=== PATIENT | male | born 1955 | race Caucasian/White ===

== ENCOUNTER → 2018-02-17 11:26 | Outpatient (CLI) | payer OTHER, SELFPAY ==
[2018-02-17 12:22] LABS: Partial Thromboplast Time 30.8 Seconds (24.1-36.2); Prothrombin Time (Protime)PT. 13.6 SECONDS (11.7-14.9)
[2018-02-17 12:38] LABS: Hematocrit 41.9 % (40-54); Hemoglobin 13.6 g/dl (13.0-16.5); Mean Corp Hgb Conc 32.5 g/gl (32-36); Mean Corpuscular Hgb 31.3 pg (27.0-32.0); Mean Corpuscular Volume 96.5 fL (80-94); Mean Platelet Vol. 9.6 fl (6.2-12.0); Platelet Count 258 K/mm3 (150-450); RBC Distribution Width CV 13.4 % (11.6-14.6); RBC Distribution Width SD 47.4 fl (35.1-43.9); Red Blood Count 4.34 M/mm3 (4.6-6.2); White Blood Count 7.8 K/mm3 (4.4-11.0)
[2018-02-17 12:48] LABS: Scan Indicated on CBC? Y/N NO
== END ==
PROVIDERS: Family Provider Internal Medicine; PCP Internal Medicine; Visit Provider Internal Medicine Nephrology
DX: R80.9 Proteinuria, unspecified (principal)
CPT/HCPCS: 36415; 85027; 85610; 85730

== ENCOUNTER → 2018-04-24 09:57 | Outpatient (CLI) | payer OTHER, SELFPAY ==
[2018-04-24 12:34] LABS: Protein, Urine (Random) 78.3 mg/dL (<11.9); Protein:Creat Ratio 732 mg/g CRE (0-200)
[2018-04-24 12:38] LABS: BUN 14 mg/dL (7-18); BUN/Creat Ratio 11.7 RATIO (10-20); Chloride 106 mmol/L (98-107); EST Glomerular Filtration Rate 65 mL/min (>60); Est Glom Filt Rate - Afr Amer 79 mL/min (>60); Glucose 86 mg/dL (74-106); Phosphorus 2.8 mg/dL (2.5-4.9); Potassium 4.2 mmol/L (3.5-5.1); Sodium Level 138 mmol/L (136-145)
[2018-04-24 14:36] LABS: Hematocrit 43.4 % (40-54); Hemoglobin 14.7 g/dl (13.0-16.5); Mean Corp Hgb Conc 33.9 g/gl (32-36); Mean Corpuscular Hgb 32.2 pg (27.0-32.0); Mean Platelet Vol. 10.3 fl (6.2-12.0); Platelet Count 283 K/mm3 (150-450); RBC Distribution Width CV 13.1 % (11.6-14.6); RBC Distribution Width SD 44.4 fl (35.1-43.9); Red Blood Count 4.57 M/mm3 (4.6-6.2); White Blood Count 6.7 K/mm3 (4.4-11.0)
[2018-04-24 14:38] LABS: Scan Indicated on CBC? Y/N NO
[2018-04-25 10:29] LABS: Vitamin D,25 Hydroxy 21.5 ng/mL (29.95-100.01)
[2018-04-25 10:40] LABS: PTHIN 69.6 pg/mL (18.4-80.1)
[2018-04-25 14:27] LABS: ANTINUCLEAR ANTIBODIES DIRECT Negative (Negative)
[2018-04-25 16:10] LABS: Cytoplasmic Ab (C-ANCA) <1:20 titer (Neg:<1:20); HEPATITIS B SURFACE AG Negative (Negative); Hepatitis A AB, Total Negative (Negative); Hepatitis A IgM Antibody Negative (Negative); Hepatitis B Core AB IgM Negative (Negative); Hepatitis B Core Ab Total Negative (Negative); Hepatitis C Ab <0.1 s/co ratio (0.0-0.9); PROEL- A/G Ratio 1.1 (0.7-1.7); PROEL- Alpha-1 Globulin 0.2 g/dL (0.0-0.4); PROEL- Beta Globulin 1.3 g/dL (0.7-1.3); PROEL- Gamma Globulin 1.2 g/dL (0.4-1.8); PROEL- Globulin, Total 3.6 g/dL (2.2-3.9); PROEL- TOTAL PROTEIN 7.6 g/dL (6.0-8.5)
[2018-04-28 09:58] LABS: Complement C3 153 mg/dL (82-167); Hep B Surface Antibodies Non Reactive (.); Perinuclear Ab (P-ANCA) <1:20 titer (Neg:<1:20)
[2018-04-29 12:08] LABS: PROELU- Albumin, Urine 81.8 % (.); PROELU- Alpha-1-Globulin,Ur 0.9 % (.); PROELU- Alpha-2-Globulin,Ur 2.7 % (.); PROELU- Beta Globulin, Ur 8.6 % (.); PROELU- Gamma Globulin, Ur 5.9 % (.); Total Protein, Ur 84.5 mg/dL (Not Estab.)
== END ==
PROVIDERS: Family Provider Internal Medicine; PCP Internal Medicine; Visit Provider Internal Medicine Nephrology
DX: E55.9 Vitamin D deficiency, unspecified (principal); R80.9 Proteinuria, unspecified
CPT/HCPCS: 36415; 80069; 82306; 82570; 83970; 84156; 84165; 84166; 85027; 86038; 86160; 86256; 86704; 86705; 86706; 86708; 86709; 86803; 87340

== ENCOUNTER → 2018-04-29 08:34 | Outpatient (CLI) | payer OTHER, SELFPAY ==
[2018-04-29 11:25] LABS: 24 Hour Urine Protein 1953.2 mg/24HR (<150 MG/24HR); 24HR. UA Prot. Total Volume 1450 mL; Urine Protein (24 Hour) 134.7 mg/dL (<11.9)
== END ==
PROVIDERS: Family Provider Internal Medicine; PCP Internal Medicine; Visit Provider Internal Medicine Nephrology
DX: E55.9 Vitamin D deficiency, unspecified (principal); R80.9 Proteinuria, unspecified
CPT/HCPCS: 84156

== ENCOUNTER → 2018-06-02 11:50 | Outpatient (CLI) | payer OTHER, SELFPAY ==
[2018-06-02 14:05] LABS: Hematocrit 43.4 % (40-54); Hemoglobin 14.2 g/dl (13.0-16.5); Mean Corp Hgb Conc 32.7 g/gl (32-36); Mean Corpuscular Hgb 31.1 pg (27.0-32.0); Mean Platelet Vol. 9.6 fl (6.2-12.0); Platelet Count 276 K/mm3 (150-450); RBC Distribution Width CV 13.3 % (11.6-14.6); Red Blood Count 4.57 M/mm3 (4.6-6.2); Scan Indicated on CBC? Y/N NO; White Blood Count 8.3 K/mm3 (4.4-11.0)
[2018-06-02 14:15] LABS: Anion Gap 10 (5-15); BUN 23 mg/dL (7-18); BUN/Creat Ratio 20.2 RATIO (10-20); Calcium,Total 9.1 mg/dL (8.5-10.1); Chloride 106 mmol/L (98-107); Creatinine, Serum 1.14 mg/dL (0.70-1.30); EST Glomerular Filtration Rate 69 mL/min (>60); Est Glom Filt Rate - Afr Amer 84 mL/min (>60); Glucose 87 mg/dL (74-106); Potassium 3.7 mmol/L (3.5-5.1); Sodium Level 139 mmol/L (136-145)
[2018-06-02 14:26] LABS: Prothrombin Time (Protime)PT. 13.2 SECONDS (11.7-14.9)
[2018-06-02 14:27] LABS: Partial Thromboplast Time 30.2 Seconds (24.1-36.2)
== END ==
PROVIDERS: Family Provider Internal Medicine; PCP Internal Medicine; Visit Provider Internal Medicine Nephrology
DX: R80.9 Proteinuria, unspecified (principal)
CPT/HCPCS: 36415; 80048; 85027; 85610; 85730

== ENCOUNTER → 2018-07-25 15:19 | Outpatient (CLI) | payer OTHER, SELFPAY ==
[2018-07-25 17:48] LABS: Color, Urine Yellow (Yellow); Glucose, Dipstick Normal (Normal); Ketone-Dipstick Negative (Negative); Leukocyte Esterase-Dipstick Negative /ul (Negative); Nitrite-Dipstick Negative (Negative); Occult Blood-Urine Negative /ul (Negative); Protein-Dipstick 100 mg/dl (Negative); Urine Bilirubin Dipstick Negative (Negative); Urine Clarity Clear (Clear); Urine Urobilinogen Normal (Normal)
[2018-07-25 17:50] LABS: Hematocrit 41.2 % (40-54); Hemoglobin 13.8 g/dl (13.0-16.5); Mean Corp Hgb Conc 33.5 g/gl (32-36); Mean Corpuscular Volume 95.6 fL (80-94); Platelet Count 297 K/mm3 (150-450); RBC Distribution Width CV 13.5 % (11.6-14.6); RBC Distribution Width SD 45.2 fl (35.1-43.9); Red Blood Count 4.31 M/mm3 (4.6-6.2)
[2018-07-25 17:51] LABS: Albumin, Serum 3.9 g/dL (3.2-5.0); BUN 16 mg/dL (7-18); BUN/Creat Ratio 13.9 RATIO (10-20); Calcium,Total 9.1 mg/dL (8.5-10.1); Chloride 104 mmol/L (98-107); Creatinine, Serum 1.15 mg/dL (0.70-1.30); EST Glomerular Filtration Rate 68 mL/min (>60); Est Glom Filt Rate - Afr Amer 83 mL/min (>60); Glucose 152 mg/dL (74-106); Phosphorus 2.9 mg/dL (2.5-4.9); Potassium 4.2 mmol/L (3.5-5.1); Sodium Level 140 mmol/L (136-145)
[2018-07-25 18:02] LABS: PTHIN 39.3 pg/mL (18.4-80.1); Vitamin D,25 Hydroxy 23.4 ng/mL (29.95-100.01)
[2018-07-25 18:09] LABS: Scan Indicated on CBC? Y/N NO
[2018-07-25 18:11] LABS: Microalbumin:Creatinine Ratio 272.9 mg/g CRE (<30 mg/g CRE); Protein, Urine (Random) 50.1 mg/dL (<11.9); Protein:Creat Ratio 425 mg/g CRE (0-200)
[2018-07-25 18:46] LABS: International Normalized Ratio 0.9; Prothrombin Time (Protime)PT. 12.4 SECONDS (11.7-14.9)
[2018-07-25 18:47] LABS: Partial Thromboplast Time 28.1 Seconds (24.1-36.2)
== END ==
PROVIDERS: Family Provider Internal Medicine; PCP Internal Medicine; Visit Provider Internal Medicine Nephrology
DX: R80.9 Proteinuria, unspecified (principal); E55.9 Vitamin D deficiency, unspecified
CPT/HCPCS: 36415; 80069; 81002; 82043; 82306; 82570; 83970; 84156; 85027; 85610; 85730

== ENCOUNTER → 2018-07-30 08:51 | Outpatient (CLI) | payer OTHER, SELFPAY ==
[2018-07-30] VITALS (9 sets, daily range): BP systolic 95–135; BP diastolic 44–73; PULSE 53–58; RESP 12–18; TEMP 36.6; O2SAT 92–100; BMI 31.4
--- NOTE | 2018-07-30 | KID_PTH ---
PATIENT: SHASHA DODSON LOC: CT U#:[id number] AGE/SX: 70/M ROOM: RE07/30/[address]: Dr. Belle Kaur MD : 1955 BED: DIS: SPEC #: [id number] RECD: 07/30/18 13:13 STATUS: CRESCENCIO MAUREEN #: [id number] MARCE: 07/30/18 00:[address]: Belle Kaur DEPT: SURGICAL PATHOLOGY RECD BY: Jimbo Gracia ENTERED: 07/30/18 13:14 SP TYPE: KIDNEY OTHR DR: Dr. Domitila Martinez MD Tissues: Kidney, NOS Procedures: Electron Microscopy (ACH) Fluorescent Antibody (ACH) Sp St Grp II Kidney (ACH) Kidney Biopsy (ACH) Fluorescent antibody (ACH) add'l HEADER OPERATION: CT-guided kidney biopsy PRE-OP DIAGNOSIS: Proteinuria TISSUE SUBMITTED: Right kidney 18g x4 MICROSCOPIC DIAGNOSIS Renal biopsy demonstrating acute tubular injury, mild arterionephrosclerosis and chronic tubulointerstitial changes (see comment). COMMENT This renal biopsy demonstrates acute tubular injury with mild arterionephrosclerosis and chronic tubulointerstitial changes. These findings may represent chronic vascular changes (e.g., hypertension). Evaluation of the podocytes is limited due to fixation artifact and only 12 intact glomeruli are present for evaluation, thus a podocytopathy cannot be entirely excluded. Please correlate with the clinical history. MICROSCOPIC DESCRIPTION Sections are evaluated with H & E, PAS, Streeter and trichrome stains. Sixteen glomeruli are present. Four glomeruli are globally sclerotic. Preserved glomeruli demonstrate delicate capillary loops with mild thickening of vascular poles. No segmental lesions, cellular proliferation or active glomerulitis are identified. There is approximately 40% interstitial fibrosis with proportionate tubular atrophy. The majority of the tubules demonstrate attenuation of the epithelial lining and several show necrosis and sloughing of the cells into the lumen. There is a patchy, mild mononuclear interstitial inflammatory infiltrate. Rare arterioles are present and demonstrate mild myointimal thickening. No arteritis is identified. IMMUNOFLUORESCENCE: There is no specific staining to indicate the deposition of the immunoglobulins (IgG, IgA or IgM) or complement components (C3 or C1q). Stains for light chains kappa and lambda show no evidence of deposition in glomerular or tubular basement membranes. Glomerular fibrin deposition is not increased. ELECTRON MICROSCOPY: One glomerulus is evaluated. Mesangial areas are not significantly expanded and no discrete electron dense deposits are identified. Glomerular capillary loops show basement membranes of normal thickness with no discrete electron dense deposits. Podocytes demonstrate degenerative change, suggestive of under-fixation artifact. Where present, podocytes demonstrate areas that appear normal and some areas of effacement. Tubular basement membranes are of increased thickness with no discrete electron dense deposits. GROSS DESCRIPTION The specimen is sent entirely to [facility] for diagnosis. The specimen is received in transport medium and consists of four cores of briseno renal tissue that range in length from 1.2 to 1.5 cm. The cores are divided for histology, immunofluorescence and electron microscopy.
== END ==
PROVIDERS: Family Provider Internal Medicine; PCP Internal Medicine; Visit Provider Internal Medicine Nephrology
DX: N17.9 Acute kidney failure, unspecified (principal); I12.9 Hypertensive chronic kidney disease with stage 1 through stage 4 chronic kidney disease, or unspecified chronic kidney disease; N18.2 Chronic kidney disease, stage 2 (mild); N15.9 Renal tubulo-interstitial disease, unspecified; N52.9 Male erectile dysfunction, unspecified; E55.9 Vitamin D deficiency, unspecified; L40.9 Psoriasis, unspecified; Z79.899 Other long term (current) drug therapy
CPT/HCPCS: 50200; 77012; 88305; 88313; 88346; 88348; 88350; 99156; J7040; A4216

== ENCOUNTER → 2018-09-25 10:59 | Outpatient (CLI) | payer OTHER, SELFPAY ==
--- NOTE | 2018-09-25 11:02 | VDLE_ITS ---
[id number] VL^VDUL^Venous Duplex US- Unilateral [id number] TAG_START Cardiovascular Services Venous Doppler [facility] [place] [address] Ordering Physician: Taylor Alvarez TAG_ENDED TAG_START Name: SHASHA DODSON Study Date: 09/25/2018 11:04 AM Patient Location: [facility] : 1955 Gender: Male Age: 62 yrs Ethnicity: C TAG_ENDED Reason For Study: LEG PAIN RIGHT LEFT GSV is normal. CFV is compressible, spontaneous, phasic, CFV is compressible, spontaneous, phasic, competent, and demonstrates normal competent and demonstrates normal augmentation. augmentation. FV is compressible, spontaneous, phasic, competent and demonstrates normal augmentation. POP V is compressible, spontaneous, phasic, competent and demonstrates normal augmentation. T/P Trunk is compressible. PTV is compressible. RT PerV is compressible. Procedure Exam performed in department. A preliminary report was called and/or faxed to Dr. Alvarez. <> Interpretation Summary Deep veins of the right lower extremity are patent and compressible segmentally. There is no evidence of right lower extremity deep vein thrombosis. Valvular competence appears intact within the proximal deep venous system on the right . The right greater saphenous vein appears patent and compressible segmentally. TAG_START TAG_ENDED Ordering Physician: Taylor Alvarez Referring Physician: Taylor Alvarez Performed By: Neisha Kelley RVT
== END ==
PROVIDERS: Family Provider Internal Medicine; PCP Internal Medicine; Referring Provider Internal Medicine; Visit Provider Internal Medicine
DX: M79.661 Pain in right lower leg (principal)
CPT/HCPCS: 93971

== ENCOUNTER → 2019-02-23 08:31 | Outpatient (CLI) | payer OTHER, SELFPAY ==
[2019-02-23 08:38] LABS: Red Blood Cells-Urine 0 SEEN /hpf (0-5); Squamous Epithelial Cells - UA 0 SEEN /hpf (0-5); White Blood Cells 0 SEEN /hpf (0-5)
[2019-02-23 10:29] LABS: Color, Urine Yellow (Yellow); Glucose, Dipstick Normal (Normal); Ketone-Dipstick Negative (Negative); Leukocyte Esterase-Dipstick Negative /ul (Negative); Nitrite-Dipstick Negative (Negative); Occult Blood-Urine Negative /ul (Negative); Protein-Dipstick 100 mg/dl (Negative); Specific Gravity, Urine 1.025 (1.002-1.030); Urine Bilirubin Dipstick Negative (Negative); Urine Clarity Clear (Clear); Urine Urobilinogen Normal (Normal)
[2019-02-23 10:42] LABS: Bacteria RARE /hpf (None Seen); Hematocrit 42.8 % (40-54); Hemoglobin 14.1 g/dl (13.0-16.5); Hyaline Cast 0-5 SEEN /lpf (0-5); Mean Corp Hgb Conc 32.9 g/gl (32-36); Mean Corpuscular Hgb 31.9 pg (27.0-32.0); Mean Corpuscular Volume 96.8 fL (80-94); Mean Platelet Vol. 9.9 fl (6.2-12.0); Mucous, Urine RARE /hpf (<or=2+); Platelet Count 276 K/mm3 (150-450); RBC Distribution Width CV 13.5 % (11.6-14.6); RBC Distribution Width SD 46.6 fl (35.1-43.9); Red Blood Count 4.42 M/mm3 (4.6-6.2); White Blood Count 5.6 K/mm3 (4.4-11.0)
[2019-02-23 10:53] LABS: Scan Indicated on CBC? Y/N NO
[2019-02-23 11:01] LABS: ALB/GLOB Ratio 1.1 RATIO (0.9-2.4); AST(SGOT) 28 U/L (15-37); Alanine Aminotransfer ALT/SGPT 40 U/L (16-61); Albumin, Serum 4.1 g/dL (3.2-5.0); Alkaline Phosphatase 44 U/L (45-117); Anion Gap 7 (5-15); BUN 16 mg/dL (7-18); BUN/Creat Ratio 12.6 RATIO (10-20); Calcium,Total 9.3 mg/dL (8.5-10.1); Chloride 108 mmol/L (98-107); Cholesterol 193 mg/dL (200); Creatinine, Serum 1.27 mg/dL (0.70-1.30); EST Glomerular Filtration Rate 61 mL/min (>60); Est Glom Filt Rate - Afr Amer 74 mL/min (>60); Globulin 3.9 g/dL (2.2-4.2); Glucose 98 mg/dL (74-106); High Density Lipoprotein 58 mg/dL; Phosphorus 3.2 mg/dL (2.5-4.9); Potassium 4.3 mmol/L (3.5-5.1); Sodium Level 141 mmol/L (136-145); Triglycerides 238 mg/dL; Very Low Density Lipoprotein 48 mg/dL (5-40); Vitamin D,25 Hydroxy 46.2 ng/mL (29.95-100.01)
[2019-02-23 11:14] LABS: Microalbumin:Creatinine Ratio 413.3 mg/g CRE (<30 mg/g CRE); Protein, Urine (Random) 31.1 mg/dL (<11.9); Protein:Creat Ratio 165 mg/g CRE (0-200)
[2019-02-23 11:29] LABS: PTHIN 35.7 pg/mL (18.4-80.1)
== END ==
PROVIDERS: Family Provider Internal Medicine; PCP Internal Medicine; Referring Provider Internal Medicine Nephrology; Visit Provider Internal Medicine Nephrology
DX: E78.1 Pure hyperglyceridemia (principal); E55.9 Vitamin D deficiency, unspecified; N18.2 Chronic kidney disease, stage 2 (mild); R80.9 Proteinuria, unspecified
CPT/HCPCS: 36415; 80053; 80061; 81001; 82043; 82306; 82570; 83970; 84100; 84156; 85027

== ENCOUNTER 2019-06-29 18:08 | Emergency (ER) | payer OTHER, SELFPAY ==
[2019-06-29 18:09] VITALS: BP 155/70; PULSE 66; RESP 16; TEMP 36.1; O2SAT 99; BMI 27.3
--- NOTE | 2019-06-29 18:52 | ED.VISSUMM ---
- ER Visit Summary Date of Service: 06/29/19 Chief Complaint: Right forehead laceration History of Present Illness: The patient is a 63 M was breaking sticks he went to step on 1 to break it and it kicked up and he met his right forehead causing a laceration. This was in the last 2 hours. Believes his tetanus is up-to-date. No other injuries. He was not knocked unconscious. He is on no blood thinners. Physical Examination: Well-appearing male. Vital signs are stable and afebrile. HEENT exam is a stellate laceration above his right eyebrow and right forehead. There is minimal oozing of blood. No pulsatile bleeding. Pupils round reactive light. Moist intact. There is no visual change. Otherwise face and scalp are unremarkable. Neck nontender. Lungs clear to auscultation. Heart regular rhythm no murmur. Chest nontender. Abdomen soft nontender extremities moves all 4. Neurovascular intact. Neurologically is awake alert. No focal motor or sensory episodes. NIH 0. GCS of 15. Test Results: None Emergency Department Course and Treatment: Suture repair right forehead laceration. Wound was locally anesthetized with 2% lidocaine. Copiously irrigated with saline. Cleaned with Shur-Clens prior to that. Explored I do not see any signs of any foreign body. Closed using 4 simple interrupted 5-0 Ethilon sutures. Proper hemostasis wound closure obtained. It was a very irregular wound and there will be scarring which I discussed with the patient. Treatment Plan: Wound care. Suture removal in 7 days. Return if any signs of infection. Disposition: Discharge Impression: Right forehead laceration with ER repair of 3 cm This note was generated with [employer] dictation software. It may contain incorrect words, spelling, and punctuation that were not noted in review of the chart prior to signing ED Disposition - Plan for ED Patient: Referrals: Domitila Martinez MD [Primary Care Provider] -
--- NOTE | 2019-06-29 20:32 | ED.DEP ---
ED Disposition - Plan for ED Patient: Disposition: Home or Assisted Living Instructions: LACERATION, Face (Suture or Tape) Referrals: Domitila Martinez MD [Primary Care Provider] - 7 Days for suture removal Additional Instructions: He is to wound. To decrease pain and swelling. Tylenol Motrin for pain. Keep wound clean wash daily with soap water peroxide and water apply antibiotic ointment. Suture removal in 7 days. Watch for any signs of infection.
[2019-06-29 21:16] VITALS: BP 152/60; PULSE 78; RESP 18; O2SAT 96
== END 2019-06-29 21:17 | disposition home or self-care (01) ==
PROVIDERS: Emergency Provider Emergency Medicine; Family Provider Internal Medicine; PCP Internal Medicine
DX: S01.81XA Laceration without foreign body of other part of head, initial encounter (principal); W45.8XXA Other foreign body or object entering through skin, initial encounter; Y93.89 Activity, other specified; Y92.9 Unspecified place or not applicable; I10 Essential (primary) hypertension; K21.9 Gastro-esophageal reflux disease without esophagitis; Z79.899 Other long term (current) drug therapy
CPT/HCPCS: 12013; 99283

== ENCOUNTER → 2025-11-29 | Outpatient (CLI) | payer BC, MEDICARE, SELFPAY ==
[2025-11-29 15:46] LABS: CRP < 3.00 mg/L (0.0-3.0); Ferritin 188 ng/mL (37-417); Vitamin D,25 Hydroxy 49.1 ng/mL (30-100)
[2025-12-01 15:08] LABS: ANTINUCLEAR ANTIBODIES DIRECT Negative (Negative)
== END | disposition home or self-care (01) ==
LOC: CIMLAB 12:02
PROVIDERS: PCP Internal Medicine; Referring Provider Internal Medicine; Visit Provider Internal Medicine
DX: M25.50 Pain in unspecified joint (principal); E55.9 Vitamin D deficiency, unspecified
CPT/HCPCS: 36415; 82306; 82728; 85652; 86038; 86140; 86200; 86431